=== PATIENT | female | born 1970 | race Caucasian/White ===

== ENCOUNTER 2018-12-03 21:04 | Inpatient (IN) | payer MEDICARE, OTHER ==
[2018-12-03] MEDS ORDERED: HYDROmorphone 0.5 MG/0.5 ML Syringe IVPUSH ONE (21:55)
[2018-12-03] MEDS ORDERED: Metoclopramide 10 MG/2 ML SDV IVPUSH ONE (21:55)
[2018-12-03] MEDS ORDERED: Lactated Ringers 1,000 ML IV SCH (22:00)
--- NOTE | 2018-12-03 22:01 | EDM.PDOC ---
ED HPI GENERAL MEDICAL PROBLEM - General Chief Complaint: Abdominal Pain Stated Complaint: PAIN SURGERY OCTOBER 12 Time Seen by Provider: 12/03/18 21:45 Source of Information: Reports: Patient, Old Records, RN History Limitations: Reports: No Limitations - History of Present Illness INITIAL COMMENTS - FREE TEXT/NARRATIVE: 48 yo female with a pHx of gastric bypass here with Dr. Sorensen presents with L sided abdominal pain that waxes and wanes, but has been getting worse for the past couple of mos. Had severe nausea last night without emesis. No fever. Pain is worsened by eating. About a mos. ago was seen in [place] and had a hemicolectomy for a caecal volvulus. She had some of today's L sided abdominal pain then, but it never went away and is getting gradually worse. Has not consulted Dr. Sorensen for this pain to date. Onset: Gradual Duration: Week(s):, Waxing/Waning Location: Reports: Abdomen Quality: Reports: Ache Severity: Moderate Improves with: Denies: Eating (not eating) Worsens with: Reports: Eating Context: Reports: Other (see HPI) Associated Symptoms: Reports: Nausea/Vomiting. Denies: Fever/Chills Treatments BOOM STICK MAN: Reports: Other (see below) (none) Left Abdomen Pain Score (Numeric/FACES): 8 - Related Data Allergies Allergy/AdvReac Type Severity Reaction Status Date / Time cephalexin monohydrate Allergy Rash Verified 12/03/18 21:40 [From Keflex] erythromycin base Allergy Rash Verified 12/03/18 21:40 latex Allergy Rash Verified 12/03/18 21:40 Penicillins Allergy Rash Verified 12/03/18 21:40 sulfamethoxazole Allergy Rash Verified 12/03/18 21:40 [From Septra] trimethoprim [From Marra] Allergy Rash Verified 12/03/18 21:40 Home Meds: Home Meds Albuterol [Proair HFA] 2 puff INH Q4HR PRN 01/15/15 [History] EPINEPHrine [Epipen 2-Marck] 0.3 mg IM DAILY PRN 01/15/15 [History] Cyanocobalamin (Vitamin B-12) [Vitamin B-12] 1,000 mcg SL DAILY #100 tab.subl [Rx] Pedi Multivit #22/Vit D3/Vit K [Multivitamins Chewables Tablet] 1 each PO BID # 100 tab.chew 01/17/15 [Rx] Levothyroxine [Synthroid] 100 mcg PO ACBREAKFAST 12/12/15 [History] Past Medical History HEENT History: Reports: Impaired Vision Other HEENT History: wears glasses Cardiovascular History: Reports: Other (See Below) Other Cardiovascular History: HYPOTENSION Respiratory History: Reports: Asthma, Sleep Apnea Other Respiratory History: Has CPAP Gastrointestinal History: Reports: Chronic Diarrhea, GERD Genitourinary History: Reports: Other (See Below) Other Genitourinary History: nerves damaged effecting bowel and bladder has a stimulator [employer] History: Reports: Musculoskeletal History: Reports: Back Pain, Chronic, Other (See Below) Other Musculoskeletal History: nerve pain Neurological History: Reports: None Psychiatric History: Reports: Anxiety Endocrine/Metabolic History: Reports: Hypothyroidism, Vitamin D Deficiency Hematologic History: Reports: B12 Deficiency, Blood Transfusion(s) Immunologic History: Reports: None Oncologic (Cancer) History: Reports: None Dermatologic History: Reports: Eczema - Infectious Disease History Infectious Disease History: Reports: Chicken Pox - Past Surgical History GI Surgical History: Reports: Appendectomy, Bariatric Procedure, Cholecystectomy , EGD, Esophageal Dilatation, Hernia Repair/Other Female Surgical History: Reports: Hysterectomy, Other (See Below) Neurological Surgical History: Reports: Discectomy, Laminectomy, Spinal Fusion Musculoskeletal Surgical History: Reports: Arthroscopic Knee, Other (See Below) Social & Family History - Family History HEENT: Reports: None Cardiac: Reports: None Respiratory: Reports: None GI: Reports: None : Reports: None OBGYN: Reports: None Musculoskeletal: Reports: Other (See Below) Other Musculoskeletal Family History: SCOLOSIS Neurological: Reports: None Psychiatric: Reports: None Endocrine/Metabolic: Reports: None Hematologic: Reports: None Immunologic: Reports: None Dermatologic: Reports: None Oncologic: Reports: None ED ROS GENERAL - Review of Systems Review Of Systems: See Below Constitutional: Reports: No Symptoms HEENT: Reports: No Symptoms Respiratory: Reports: No Symptoms Cardiovascular: Reports: No Symptoms Endocrine: Reports: No Symptoms GI/Abdominal: Reports: Abdominal Pain, Nausea. Denies: Anorexia, Black Stool, Bloody Stool, Constipation, Diarrhea, Distension, Flatus, Hematemesis, Hematochezia, Melena, Vomiting : Reports: No Symptoms Musculoskeletal: Reports: No Symptoms Skin: Reports: No Symptoms Neurological: Reports: No Symptoms ED EXAM, GI/ABD - Physical Exam Exam: See Below Exam Limited By: No Limitations General Appearance: Alert, WD/WN, No Apparent Distress Eyes: Bilateral: Normal Appearance Ears: Normal External Exam, Normal Canal, Hearing Grossly Normal, Normal TMs Nose: Normal Inspection, No Blood Throat/Mouth: Normal Inspection, Normal Lips, Normal Oropharynx, Normal Voice, No Airway Compromise Head: Atraumatic, Normocephalic Neck: Normal Inspection Respiratory/Chest: No Respiratory Distress, Lungs Clear, Normal Breath Sounds, No Accessory Muscle Use Cardiovascular: Regular Rate, Rhythm, No Edema GI/Abdominal Exam: Normal Bowel Sounds, Soft, No Distention, Tender (just to the left of the umbilicus). No: Non-Tender Neurological: Alert, Oriented, CN II-XII Intact, Normal Cognition, No Motor/ Sensory Deficits Psychiatric: Normal Affect, Normal Mood Skin Exam: Warm, Dry, Intact, Normal Color, No Rash Course - Vital Signs Text/Narrative:: Dr. Sorensen called @ 12:25 am Last Recorded V/S: Last Vital Signs Temp 36.5 C 12/03/18 21:43 Pulse 74 12/03/18 21:43 Resp 16 12/03/18 21:43 BP 133/84 12/03/18 21:43 Pulse Ox 98 12/03/18 21:43 - Orders/Labs/Meds Orders: Active Orders 24 hr Category Date Time Status Iopamidol [Isovue-300 (61%)] Med 12/03/18 23:24 Active 93 ml IV . DIRECTED PRN Lactated Ringers [Ringers, Lactated] 1,000 ml Med 12/03/18 22:00 Active IV ASDIRECTED Sodium Chloride 0.9% [Normal Saline] 70 ml Med 12/03/18 23:30 Active IV ASDIRECTED Sodium Chloride 0.9% [Saline Flush] Med 12/03/18 23:24 Active 10 ml FLUSH ONETIME PRN Medication Orders Lactated Ringer's (Ringers, Lactated) 1,000 mls @ 150 mls/hr IV ASDIRECTED MARIELOS Last Admin: 12/03/18 22:23 Dose: 150 mls/hr Sodium Chloride (Normal Saline) 70 mls @ 3 mls/sec IV ASDIRECTED MARIELOS Last Admin: 05/31/19 23:41 Dose: 3 mls/sec Iopamidol (Isovue-300 (61%)) 93 ml IV . DIRECTED PRN PRN Reason: RADIOLOGY EXAM Stop: 12/04/18 23:25 Last Admin: 12/03/18 23:41 Dose: 93 ml Sodium Chloride (Saline Flush) 10 ml FLUSH ONETIME PRN PRN Reason: per radiology protocol Last Admin: 12/03/18 23:41 Dose: 10 ml Labs: Laboratory Tests 12/03/18 12/03/18 12/03/18 Range/Units 22:06 22:06 23:37 WBC 5.3 (4.5-11.0) K/uL RBC 3.98 (3.30-5.50) M/uL Hgb 11.8 L (12.0-15.0) g/dL Hct 38.4 (36.0-48.0) % MCV 97 (80-98) fL MCH 30 (27-31) pg MCHC 31 L (32-36) % Plt Count 266 (150-400) K/uL Sodium 143 (140-148) mmol/L Potassium 3.5 L (3.6-5.2) mmol/L Chloride 106 (100-108) mmol/L Carbon Dioxide 29 (21-32) mmol/L Anion Gap 11.5 (5.0-14.0) mmol/L BUN 16 (7-18) mg/dL Creatinine 0.6 (0.6-1.0) mg/dL Est Cr Clr Drug Dosing 109.08 mL/min Estimated GFR (MDRD) > 60 (>60) Glucose 89 (74-106) mg/dL Calcium 9.1 (8.5-10.1) mg/dL Urine Color Yellow Urine Appearance Cloudy Urine pH 6.0 (4.5-8.0) Ur Specific Kinde 1.005 L (1.008-1.030) Urine Protein Trace (NEGATIVE) mg/dL Urine Glucose (UA) 250 H (NEGATIVE) mg/dL Urine Ketones 15 H (NEGATIVE) mg/dL Urine Occult Blood Negative (NEGATIVE) Urine Nitrite Negative (NEGATIVE) Urine Bilirubin Large (NEGATIVE) Urine Urobilinogen >=8.0 (NORMAL) mg/dL Ur Leukocyte Esterase Moderate (NEGATIVE) Urine RBC 0-5 (0-5) Urine WBC 10-20 H (0-5) Ur Epithelial Cells Few Amorphous Sediment Moderate Urine Bacteria Few Urine Mucus Moderate Meds: Medications Generic Name Dose Route Start Last Admin Trade Name Freq PRN Reason Stop Dose Admin Lactated Ringer's 1,000 mls @ 150 mls/hr 12/03/18 22:00 12/03/18 22:23 Ringers, Lactated IV 150 mls/hr ASDIRECTED MARIELOS Administration Sodium Chloride 70 mls @ 3 mls/sec 12/03/18 23:30 12/03/18 23:41 Normal Saline IV 3 mls/sec ASDIRECTED MARIELOS Administration Iopamidol 93 ml 12/03/18 23:24 12/03/18 23:41 Isovue-300 (61%) IV 12/04/18 23:25 93 ml . DIRECTED PRN Administration RADIOLOGY EXAM Sodium Chloride 10 ml 12/03/18 23:24 12/03/18 23:41 Saline Flush FLUSH 10 ml ONETIME PRN Administration per radiology protocol Discontinued Medications Generic Name Dose Route Start Last Admin Trade Name Freq PRN Reason Stop Dose Admin Hydromorphone HCl 0.5 mg 12/03/18 21:55 12/03/18 22:23 Dilaudid IVPUSH 12/03/18 21:56 0.5 mg ONETIME ONE Administration Iohexol 10 ml 12/03/18 22:15 Omnipaque-300 PO . DIRECTED [facility] Iohexol Confirm 12/03/18 22:29 Omnipaque Administered 12/03/18 22:30 Dose 30 ml .ROUTE .STK-MED ONE Iohexol 30 ml 12/03/18 22:37 12/03/18 22:39 Omnipaque PO 12/03/18 22:38 20 ml ONETIME ONE Administration Metoclopramide HCl 10 mg 12/03/18 21:55 12/03/18 22:25 Reglan IVPUSH 12/03/18 21:56 10 mg ONETIME ONE Administration - Radiology Interpretation Free Text/Narrative:: CT of abdomen and pelvis with IV and oral contrast-? non-obstructive internal hernia CT Results Date: 12/03/18 CT Results Time: 00:20 Departure - Departure Time of Disposition: 00:29 Disposition: Admitted As Inpatient 64 Condition: Fair Clinical Impression: Internal hernia Abdominal pain Qualifiers: Abdominal location: unspecified location Qualified Code(s): R10.9 - Unspecified abdominal pain - Discharge Information *PRESCRIPTION DRUG MONITORING PROGRAM REVIEWED*: No *COPY OF PRESCRIPTION DRUG MONITORING REPORT IN PATIENT [place]: No Referrals: Edward Sorensen MD [Primary Care Provider] - Forms: ED Department Discharge - My Orders Last 24 Hours: My Active Orders 12/03/18 22:00 Lactated Ringers [Ringers, Lactated] 1,000 ml IV ASDIRECTED 12/03/18 23:24 Iopamidol [Isovue-300 (61%)] 93 ml IV . DIRECTED PRN Sodium Chloride 0.9% [Saline Flush] 10 ml FLUSH ONETIME PRN 12/03/18 23:30 Sodium Chloride 0.9% [Normal Saline] 70 ml IV ASDIRECTED - Assessment/Plan Last 24 Hours: My Active Orders 12/03/18 22:00 Lactated Ringers [Ringers, Lactated] 1,000 ml IV ASDIRECTED 12/03/18 23:24 Iopamidol [Isovue-300 (61%)] 93 ml IV . DIRECTED PRN Sodium Chloride 0.9% [Saline Flush] 10 ml FLUSH ONETIME PRN 12/03/18 23:30 Sodium Chloride 0.9% [Normal Saline] 70 ml IV ASDIRECTED
[2018-12-03] MEDS ORDERED: Iohexol 647 MG/ML 10 ML SDV PO SCH (22:15)
[2018-12-03] MEDS ORDERED: Iohexol 300 MG/ML 30 ML Bottle ONE (22:29)
[2018-12-03] MEDS ORDERED: Iohexol 300 MG/ML 30 ML Bottle PO ONE (22:37)
[2018-12-03] MEDS ORDERED: Iopamidol 612 MG/ML 100 ML Bottle IV PRN (23:24)
[2018-12-03] MEDS ORDERED: Sodium Chloride 0.9% 10 ML Syringe FLUSH PRN (23:24)
--- NOTE | 2018-12-04 00:19 | CRLCT ---
INDICATION: Increasing abdominal pain over weeks TECHNIQUE: CT Abdomen and pelvis with i.v. contrast. Coronal and sagittal reformats were obtained. Oral contrast was administered for the examination. CONTRAST: 93 mL Isovue 300 COMPARISON: 02/08/2016 FINDINGS: Lower chest: Unremarkable. Liver: Unremarkable. Spleen: Unremarkable. Pancreas: Unremarkable. Gallbladder: Previous cholecystectomy noted with mild stable intra and extrahepatic biliary ductal dilatation seen. Kidney: There is a cyst in the left renal midzone measuring 6 x 4 cm. Adrenal: Unremarkable. Bowel: Previous antegastric-antecolic gastric bypass noted with no definite obstruction of the biliopancreatic limb or Chiquis-en-Y loop seen. The descending colon has been displaced into the midline by small bowel loops in the left flank when compared to prior exam. The appendix is not visualized and likely surgically absent. Vascular: Unremarkable. Lymph: Unremarkable. Peritoneum: Unremarkable. No pneumoperitoneum is seen. No significant ascites is noted. Pelvis: Unremarkable. Soft tissue: The left gluteal neurostimulator is present. Bone: Grade 1 anterolisthesis at L5-S1 is present and status post transpedicular fusion. IMPRESSION: 1. The descending colon has been displaced into the midline by small bowel loops in the left flank when compared to prior exam. Findings most likely due to nonobstructive internal hernia. Dictated by Edilberto Barrios MD @ 12/04/2018 12:16:27 AM Please note that all CT scans at this facility use dose modulation, iterative reconstruction, and/or weight-based dosing when appropriate to reduce radiation dose to as low as reasonably achievable. Dictated by: Edilberto Barrios MD @ 12/04/2018 00:16:42 (Electronically Signed)
[2018-12-04] MEDS ORDERED: Ondansetron 4 MG/2 ML SDV IVPUSH PRN (01:03)
[2018-12-04] MEDS ORDERED: HYDROmorphone/Normal Saline 15 MG/30 ML PCA IV SCH (01:15)
[2018-12-04] MEDS ORDERED: Dextrose 5%-Lactated Ringers 1,000 ML IV SCH (01:15)
[2018-12-04] MEDS ORDERED: HYDROmorphone/Normal Saline 15 MG/30 ML PCA IV PRN (07:04)
[2018-12-04] MEDS ORDERED: Naloxone 0.4 MG/ML SDV IV PRN (07:05)
[2018-12-04] MEDS ORDERED: Albuterol/Ipratropium 3.0-0.5 MG/3 ML Neb Soln INH ONE (08:00)
[2018-12-04] MEDS ORDERED: Succinylcholine 200 MG/10 ML MDV ONE (08:26)
[2018-12-04] MEDS ORDERED: Rocuronium 50 MG/5 ML Vial ONE ×2 (08:26→10:32)
[2018-12-04] MEDS ORDERED: Propofol 200 MG/20 ML SDV ONE (08:26)
[2018-12-04] MEDS ORDERED: Glycopyrrolate 0.2 MG/ML 5 ML MDV ONE (08:26)
[2018-12-04] MEDS ORDERED: Neostigmine Methylsulfate 1 MG/ML 5 ML Syringe ONE (08:26)
[2018-12-04] MEDS ORDERED: fentaNYL 250 MCG/5 ML SDV ONE (08:26)
[2018-12-04] MEDS ORDERED: Ondansetron 4 MG/2 ML SDV ONE (08:26)
[2018-12-04] MEDS ORDERED: Dexamethasone 4 MG/ML SDV ONE (08:26)
[2018-12-04] MEDS ORDERED: Ketamine 50 MG in Sodium Chloride 0.9% 49.5 ML IV SCH (08:30)
[2018-12-04] MEDS ORDERED: Lidocaine 2% 100 MG/5 ML Syringe IVPUSH SCH (08:30)
[2018-12-04] MEDS ORDERED: Ketamine 500 MG/5 ML MDV IV SCH (08:30)
[2018-12-04] MEDS ORDERED: Ropivacaine 30 ML, dexAMETHasone 8 MG, EPINEPHrine 0.4 MG, Sodium Chloride 0.9% 47.6 ML NERVRT SCH ×4 (08:30)
[2018-12-04] MEDS ORDERED: Levofloxacin/Dextrose 5%-Water 500 MG in Premix Bag 1 BAG IV ONE (08:30)
[2018-12-04] MEDS ORDERED: Meropenem 500 MG SDV ONE (08:40)
[2018-12-04] MEDS: Lidocaine 0.4%/D5W 2 GM/500 ML BAG IV SCH (09:30)
[2018-12-04] MEDS ORDERED: Bupivacaine 0.5% 50 ML MDV ONE (09:47)
[2018-12-04] MEDS ORDERED: Lidocaine 1% with EPINEPHrine 1:100,000 50 ML MDV ONE (09:47)
[2018-12-04] MEDS ORDERED: Lactated Ringers 1,000 ML ONE (10:09)
[2018-12-04] MEDS ORDERED: hydrOXYzine HCl 100 MG/2 ML SDV IM PRN (11:45)
[2018-12-04] MEDS ORDERED: Metoclopramide 10 MG/2 ML SDV IVPUSH PRN (11:45)
[2018-12-04] MEDS ORDERED: Albuterol/Ipratropium 3.0-0.5 MG/3 ML Neb Soln INH PRN (11:45)
[2018-12-04] MEDS ORDERED: Labetalol 20 MG/4 ML Syringe IVPUSH PRN (11:45)
[2018-12-04] MEDS: Meropenem 500 MG in Sodium Chloride 0.9% 50 ML IV SCH ×2 (11:52→18:52)
[2018-12-04] MEDS ORDERED: Scopolamine 1.5 MG Transdermal Patch TOP SCH (14:00)
[2018-12-04] MEDS ORDERED: Pantoprazole 40 MG Vial IVPUSH SCH (14:00)
[2018-12-04] MEDS: Acetaminophen 325 MG Tab PO SCH ×2 (14:38→20:22)
[2018-12-04] MEDS: Albuterol/Ipratropium 3.0-0.5 MG/3 ML Neb Soln INH SCH ×2 (14:52→20:23)
[2018-12-04] MEDS ORDERED: MVI, Adult with Vitamin K 10 ML, Thiamine 200 MG, Chromium/Copper/Mang/Selen/Zn 1 ML in... IV SCH ×4 (16:00)
[2018-12-04] MEDS: Heparin Sodium 5,000 Units/ML Vial SUBCUT SCH (18:31)
[2018-12-04] MEDS: Dextrose 5%-Lactated Ringers 1,000 ML IV SCH (22:05)
[2018-12-04] MEDS: diphenhydrAMINE 50 MG/ML SDV IVPUSH PRN (22:22)
[2018-12-05] MEDS: Meropenem 500 MG in Sodium Chloride 0.9% 50 ML IV SCH ×3 (00:38→12:16)
[2018-12-05] MEDS: Acetaminophen 325 MG Tab PO SCH ×2 (02:25→07:28)
[2018-12-05] MEDS ORDERED: Iohexol 647 MG/ML 50 ML SDV PO PRN (02:54)
[2018-12-05] MEDS: Dextrose 5%-Lactated Ringers 1,000 ML IV SCH (04:00)
--- NOTE | 2018-12-05 04:20 | CRLCR ---
INDICATION: Evaluate Chiquis-en-Y gastric bypass. TECHNIQUE: 50 cc of Omnipaque was given orally. Two abdominal films were obtained. COMPARISON: CT of the abdomen 12/03/2018 and 02/08/2016. FINDINGS: There are postoperative changes from a Chiquis-en-Y bypass. There surgical clips in the right upper quadrant. Skin osmani. Prior fusion in the lower lumbar spine. Fusion of the right sacroiliac joint. Moderate pneumoperitoneum probably secondary to recent surgery. Contrast is seen in the small bowel without extravasation or leakage. Probable neurostimulator over the left iliac crest. IMPRESSION: 1. No evidence of contrast extravasation on the 2 static submitted images. 2. Moderate pneumoperitoneum probably related to recent surgery. Dictated by Elvin Hanson MD @ Dec 06 2018 8:14AM Signed by Dr. Elvin Hanson @ Dec 06 2018 8:19AM
[2018-12-05] MEDS: Heparin Sodium 5,000 Units/ML Vial SUBCUT SCH ×2 (05:53→18:16)
[2018-12-05] MEDS: diphenhydrAMINE 50 MG/ML SDV IVPUSH PRN (07:20)
[2018-12-05] MEDS: Albuterol/Ipratropium 3.0-0.5 MG/3 ML Neb Soln INH SCH ×4 (07:36→21:00)
[2018-12-05] MEDS: Lidocaine 0.4%/D5W 2 GM/500 ML BAG IV SCH (08:23)
[2018-12-05] MEDS: SCOPOLAMINE PATCH CHECK TOP SCH (08:24)
[2018-12-05] MEDS: MVI IV SCH ×10 (10:02→19:29)
[2018-12-05] MEDS: [UNRECOGNIZED DRUG - OTHER] IV SCH ×10 (10:02→19:29)
[2018-12-05] MEDS: DEXTROSE 5% IV SCH ×10 (10:02→19:29)
[2018-12-05] MEDS: VITAMIN K IV SCH ×10 (10:02→19:29)
[2018-12-05] MEDS: LACTATED RINGERS IV SCH ×10 (10:02→19:29)
[2018-12-05] MEDS: Magnesium Sulfate/Water 2 GM in Premix Bag 1 BAG IV SCH ×2 (10:06→18:22)
[2018-12-05] MEDS: Pantoprazole 40 MG Tab.CR PO SCH (11:34)
[2018-12-05] MEDS: Levothyroxine 100 MCG Tab PO SCH (13:32)
[2018-12-05] MEDS: Ibuprofen 600 MG Tab PO SCH ×2 (13:32→19:29)
[2018-12-05] MEDS: Acetaminophen/HYDROcodone 325-5 MG Tab PO PRN ×2 (14:26→20:59)
[2018-12-05] MEDS ORDERED: Magnesium Hydroxide 400 MG/5 ML Susp 30 ML Cup PO ONE (16:18)
[2018-12-05] MEDS ORDERED: Bisacodyl 5 MG Tab PO ONE (16:18)
[2018-12-06] MEDS: Ibuprofen 600 MG Tab PO SCH ×2 (01:39→07:23)
[2018-12-06] MEDS: Acetaminophen/HYDROcodone 325-5 MG Tab PO PRN ×3 (01:39→09:45)
[2018-12-06] MEDS: Heparin Sodium 5,000 Units/ML Vial SUBCUT SCH (05:41)
[2018-12-06] MEDS: [UNRECOGNIZED DRUG - OTHER] IV SCH ×5 (05:44)
[2018-12-06] MEDS: MVI IV SCH ×5 (05:44)
[2018-12-06] MEDS: DEXTROSE 5% IV SCH ×5 (05:44)
[2018-12-06] MEDS: VITAMIN K IV SCH ×5 (05:44)
[2018-12-06] MEDS: LACTATED RINGERS IV SCH ×5 (05:44)
[2018-12-06] MEDS ORDERED: diphenhydrAMINE 25 MG Cap PO PRN (06:24)
[2018-12-06] MEDS: Pantoprazole 40 MG Tab.CR PO SCH (07:23)
[2018-12-06] MEDS: Levothyroxine 100 MCG Tab PO SCH (07:23)
[2018-12-06] MEDS: Albuterol/Ipratropium 3.0-0.5 MG/3 ML Neb Soln INH SCH (07:25)
[2018-12-06 07:57] VITALS: BP 97/76
[2018-12-06] MEDS ORDERED: Cyanocobalamin (Vitamin B12) 1,000 MCG/ML SDV IM ONE (09:00)
[2018-12-06] MEDS: SCOPOLAMINE PATCH CHECK TOP SCH (09:39)
--- NOTE | 2018-12-06 13:13 | DISCH ---
ADMISSION DIAGNOSES: 1. Postprandial abdominal pain. 2. Hypothyroidism. 3. Chronic neck pain. 4. Sacroiliac joint dysfunction. 5. Fibromyalgia. 6. Renal cyst. 7. Status post Chiquis-en-Y gastric bypass surgery. 8. Vitamin B complex. 9. Vitamin B12 deficiency. 10.Unspecified surgical malabsorption. 11.Vitamin D deficiency. 12.Elevated liver function tests. 13.Mild persistent asthma without complication. DISCHARGE DIAGNOSES: Exploratory laparotomy with lysis of extensive adhesions: 1. Reduction of small bowel volvulus and closure of internal hernia. 2. Small-bowel resection. 3. Resection of right colon including previous ileocolonic anastomosis. 4. Small bowel strictureplasty. 5. Repair of incarcerated incisional hernia. 6. Placement of Interceed mesh for small bowel volvulus with torsion of the jejunojejunostomy by the PD limb of the small bowel, partial obstruction, previous ileocolonic anastomosis, focal stricture closure secondary to adhesion, elongated peritoneal nodule over distended small bowel and adjacent to mesenteric (7.5 cm) and incarcerated incisional hernia. Date of surgery: 12/04/2018. Surgeon: Edward Sorensen MD. HISTORY: Seema Long is a 48-year-old female who had postprandial abdominal pain, she presented to the emergency room. After preoperative evaluation and discussion of possible risks and possible complications, she wished to proceed with surgical procedure. HOSPITAL COURSE: Seema had her surgery on 12/04/2018. She had no operative complications. On postoperative day #1, she was started on step 3 gastric bypass diet. Her Wetzel catheter was discontinues. Her IV was decreased to 100 mL per hour. She received K-Phos 15 millimoles to each liter of D5 LR and her magnesium was replaced 2 g q.6 hours. On postoperative day #2, her pain was controlled. Vital signs stable. Activity good. She was able to be discharged to home. Oral intake 2100 and urine output 2100. OBJECTIVE: GENERAL: Seema Long is a 48-year-old female. VITAL SIGNS: Height is 5 feet 7 inches, weight is 140 pounds. TPR is 97.6, 90, 16, blood pressure 124/73. HEENT: Negative. NECK: Supple. HEART: Regular rate and rhythm. LUNGS: Clear. ABDOMEN: Stapled incision looks good. There are 2 to 3 osmani that are raised and in the actual incision itself. These will be Steri-Stripped and left in place. Abdominal binder is on. EXTREMITIES: Without peripheral edema. DISPOSITION: Discharged to home. CONDITION: Stable and improving. FOLLOWUP: Followup appointment on 12/13/2018 at 1 p.m. with Naa Clark PA-C, at [facility]. NEW PRESCRIPTIONS: Mcdowell 5/325 mg 1 to 2 q.6 hours p.r.n. pain, #56. She is to resume home medication of vitamin B12 1000 mcg sublingual daily, EpiPen use as directed, levothyroxine 100 mcg oral before breakfast, multivitamin b.i.d. chewable. DIET: Step 3 gastric bypass diet. Drink 8 to 10 glasses of water a day. ACTIVITY: No lifting over 10 pounds for 6 weeks. Walk at least 6 times inside your house. Driving: Do not drive for 1 week and while on pain medication. Shower/bathing: May shower. DISCHARGE INSTRUCTIONS: Notify provider if any fever, increased pain, swelling, redness, drainage, nausea, vomiting. Keep site clean and dry. Wear abdominal binder for 6 weeks and as needed. Use incentive spirometer 10 times every hour while awake.
--- NOTE | 2018-12-07 10:49 | PN ---
DATE OF SERVICE: 12/05/2018 The patient is postop day 1 from reduction of volvulus, small bowel resection, as well as resection of previous ileocolic anastomosis, which was partially obstructed. Postoperatively, she has done well. No significant problems were noted overnight. Her upper GI looked good, and she is tolerating a clear liquid diet satisfactorily. The plan will be to back down on the IV rate. The magnesium is somewhat low, and we will supplement that over the next 48 hours. The potassium is marginally low at 3.9, and we will add 15 mmol of K-Phos to her D5 LR and otherwise turn the IV down to 100 an hour. The Wetzel catheter will come out and will go up to step-3 diet. She is having a fair bit of surgical discomfort and will leave the IV [employer] going for today. Edward Sorensen MD /[id number]
--- NOTE | 2018-12-07 12:22 | OR ---
DATE OF PROCEDURE: 12/04/2018 PREOPERATIVE DIAGNOSIS: Probable partial small bowel obstruction. POSTOPERATIVE DIAGNOSES: 1. Small bowel volvulus. 2. Torsion of jejunojejunostomy by a retracted mesentery attached to pancreaticoduodenal limb stump. 3. Partial obstruction of previous ileocolic anastomosis. 4. Focal stricture at mid-ileum secondary to adhesions. 5. Elongated peritoneal nodule overlying small bowel and adjacent small bowel mesentery. 6. Incarcerated incisional (trocar site) hernia. 7. Extensive intraabdominal adhesions. OPERATIVE PROCEDURES: Exploratory laparotomy with lysis of extensive adhesions and, 1. Reduction of small bowel volvulus and closure of internal hernia (46692). 2. Small bowel resection (23635). 3. Resection of ascending and portion of transverse colon including previous ileocolic anastomosis (34980). 4. Small bowel stricturoplasty (01017). 5. Resection of elongated peritoneal nodule, distal small bowel and adjacent small bowel mesentery (7.5 cm) (25482). 6. Placement of Interceed mesh to limit recurrent adhesion formation between pelvic and abdominal caraballo and underlying viscera (92403). ANESTHESIA: General. INDICATION FOR PROCEDURE: This is a 48-year-old presenting with a picture of persistent small bowel obstruction. In early October, the patient underwent a right colectomy for a cecal volvulus. Prior to that, the patient, for several months, had postprandial left-sided abdominal bloating and cramping between the postprandial period. Based on the clinical findings, this was highly suggestive of partial small bowel obstruction. The plan is to proceed with an exploratory laparotomy with correction of issues that might arise including reduction and then closure of volvulus and associated mesenteric defects if identified, as well as possible bowel resection. Potential risks of the procedure including bleeding, infection, injury to underlying viscera, leaks from various GI tract closures, as well as the possibility of cardiopulmonary, septic, or hemorrhagic complications leading to were discussed, and the patient wishes to proceed. DETAILS OF PROCEDURE: The patient was taken to the operating room and placed in a supine position. After general endotracheal anesthesia was induced, a Wetzel catheter was inserted, and the abdomen was prepped and draped. Beginning roughly a handsbreadth's superior to the umbilicus and eventually extending somewhat below the umbilicus, the midline incision was made and carried down through the full thickness of the abdominal wall. Upon entering the peritoneal cavity, there were quite extensive adhesions and these were taken down. Once the adhesions to the abdominal wall were reviewed, the Chiquis limb was identified. This was traced downward where it became evident that there was development of a small bowel volvulus with rotation of the area of the jejunojejunostomy, a portion of the Chiquis, common as well as pancreatoduodenal limbs underlying the mesentery of the Chiquis limb itself as it came over the transverse colon. This was reduced and upon its reduction, the patient was noted to have continued distortion of the jejunojejunostomy related to torsion of the mesentery on the pancreatoduodenal limb. The small bowel was then resected with a EMETERIO stapler, and the underlying mesentery divided with the EMETERIO mesenteric loads, and the small bowel specimen delivered from the field. The underlying mesenteric defect at that point was then closed with a running 2-0 silk stitch. There was also small mesenteric defect underlying the jejunojejunostomy, which was similarly closed with a 2-0 silk stitch. As one then traced out the common limb, as one approached the area of the ileocolic anastomosis, the bowel became quite distended. There was a focal stricture in the mid-ileum which persisted after lysis of some adhesions in that area. Beyond that, the small bowel remained quite distended and became progressively more distended along the course of the ileocolic anastomosis. It became evident that, that was partially obstructed. Some peritoneal implants over the distal small bowel were excised with a total measurement of this process being 7.5 cm, and these were sent as a separate pathologic examination. Despite freeing up those peritoneal nodules over the distal small bowel, there appeared to be persistent partial obstruction of the ileocolic anastomosis. A decision was made to resect that area as well as deal with the more proximal stricture. At this point, the remaining ascending colon, hepatic flexure were mobilized upward after division of the lateral peritoneal reflection and the transverse colon to the right of the middle colic vessels was divided with a EMETERIO stapler, and the distal small bowel at the previous anastomosis was then also divided. The mesentery between the 2 points was divided with a combination of vascular and mesenteric osmani and that specimen was delivered from the field. The ileocolic anastomosis was then accomplished with a [id number] enteroenterostomy with 2 internal firings of the 60-mm EMETERIO osmani. Common opening was then closed transversely with the EMETERIO osmani as well, and angles anastomosed and mesenteric defect approximated with some 3-0 Vicryl stitch. The area of stricturing was then addressed with making an enterotomy at the point of stricture, then flipping the bowel back over on itself. Then, the stricturoplasty was accomplished with initial internal firing of the 60-mm stapler, followed by 30 mm EMETERIO stapler, and then the common opening closed transversely with the EMETERIO stapler as well. There was no mesenteric defect in this case, and the angles of anastomosis were reinforced with some 3-0 Vicryl stitch. At this point, no further problems were noted. The abdomen was irrigated with antibiotic-containing saline solution. A drain was felt not to be necessary. Interceed mesh was then placed down to the pelvis, in the midline behind urinary bladder and up against the abdominal incision, to prevent recurrent adhesion formation between the underlying viscera and those structures as the omentum was not available for mobilization. The midline fascia was then approximated with #2 Vicryl stitch. At the time of opening, the patient was noted to have an incarcerated trocar-site hernia, of which, those contents had been excised, and this hernia was closed as part of the closure of midline fascia. The subcutaneous tissue was then approximated with some 3-0 Vicryl stitch deep and a 4-0 Vicryl subdermal stitch and osmani for the skin. Dressing was applied. The patient was taken to the recovery room in a satisfactory condition. There were no evident complications. Edward Sorensen MD /[id number]
== END 2018-12-06 10:00 | disposition home or self-care (01) | DRG 330 ==
LOC: JP.ED 21:04 → JP.MS 12-04 00:55
PROVIDERS: ADMIT Surgery; ATTEND Surgery
PROC: 0DS80ZZ Reposition Small Intestine, Open Approach (ICD-10-PCS; principal; 2018-12-04)
PROC: 0DNW0ZZ Release Peritoneum, Open Approach (ICD-10-PCS; 2018-12-04)
PROC: 0DBA0ZZ Excision of Jejunum, Open Approach (ICD-10-PCS; 2018-12-04)
PROC: 0WQF0ZZ Repair Abdominal Wall, Open Approach (ICD-10-PCS; 2018-12-04)
PROC: 0DBW0ZX Excision of Peritoneum, Open Approach, Diagnostic (ICD-10-PCS; 2018-12-04)
PROC: 0DBK0ZZ Excision of Ascending Colon, Open Approach (ICD-10-PCS; 2018-12-04)
PROC: 0DBL0ZZ Excision of Transverse Colon, Open Approach (ICD-10-PCS; 2018-12-04)
PROC: 0DN84ZZ Release Small Intestine, Percutaneous Endoscopic Approach (ICD-10-PCS; 2018-12-04)
PROC: 3E0M05Z Introduction of Adhesion Barrier into Peritoneal Cavity, Open Approach (ICD-10-PCS; 2018-12-04)
DX: K56.2 Volvulus (principal); K43.0 Incisional hernia with obstruction, without gangrene; K91.2 Postsurgical malabsorption, not elsewhere classified; K46.9 Unspecified abdominal hernia without obstruction or gangrene; K56.51 Intestinal adhesions [bands], with partial obstruction; K66.8 Other specified disorders of peritoneum; M79.7 Fibromyalgia; Z98.84 Bariatric surgery status; Z98.0 Intestinal bypass and anastomosis status; R10.9 Unspecified abdominal pain; K21.9 Gastro-esophageal reflux disease without esophagitis; J45.20 Mild intermittent asthma, uncomplicated; Z90.49 Acquired absence of other specified parts of digestive tract; E03.9 Hypothyroidism, unspecified; H54.7 Unspecified visual loss; G47.30 Sleep apnea, unspecified; Z99.89 Dependence on other enabling machines and devices; M54.9 Dorsalgia, unspecified; G89.29 Other chronic pain; E53.8 Deficiency of other specified B group vitamins; E55.9 Vitamin D deficiency, unspecified; R79.89 Other specified abnormal findings of blood chemistry; N28.1 Cyst of kidney, acquired; M54.2 Cervicalgia; Z88.1 Allergy status to other antibiotic agents; Z91.040 Latex allergy status; Z88.0 Allergy status to penicillin; Z88.8 Allergy status to other drugs, medicaments and biological substances
CPT/HCPCS: 36415; 74177; 80048; 81001; 85027; 96361 ×2; 96374; 96375; 99285; J1170; J2765; J7030; J7120; Q9965; Q9967; 74240; 80053; 82728; 83735; 84100; 85025; 88302; 88305; 88307; 94640; 94762; A9270-GY; C9113; J0171; J0330; J1100; J1200; J1644; J1956; J2001; J2020; J2185; J2405; J2704; J2710; J2795; J3010; J3410; J3411; J3420; J3475; J3490; J7042; J7050; J7620-GY

== ENCOUNTER 2019-04-08 10:00 | Day surgery (SDC) | payer BC, MEDICARE, OTHER ==
[~2019-04-08 10:00] MED LIST: Midazolam 1 MG/ML 2 ML SDV ONE; Propofol 200 MG/20 ML SDV ONE; fentaNYL 100 MCG/2 ML SDV ONE
[2019-04-08] MEDS ORDERED: Dextrose 5%-Lactated Ringers 1,000 ML IV SCH (10:45)
[2019-04-08] MEDS ORDERED: Propofol 200 MG/20 ML SDV ONE (13:03)
[2019-04-08 14:11] VITALS: BP 117/89; PULSE 63
--- NOTE | 2019-04-10 23:14 | OR ---
DATE OF PROCEDURE: 04/08/2019 SURGEON: Edward Sorensen MD PREOPERATIVE DIAGNOSIS: Frequent loose bowel movements/diarrhea, status post right colectomy. POSTOPERATIVE DIAGNOSES: 1. Frequent loose bowel movements/diarrhea, status post right colectomy. 2. Grossly normal colonoscopy other than small, very vague, slightly reddened area in the sigmoid colon. OPERATIVE PROCEDURES: Flexible colonoscopy with; 1. Collection of stool for microbiologic workup (WBCs, C. difficile, general culture, ova and parasites). 2. Random biopsies of the colon and rectum to rule out microscopic colitis. 3. Biopsies of focal slightly reddened area, sigmoid colon. ANESTHESIA: IV sedation. INDICATION FOR PROCEDURE: A 48-year-old female status post a right colectomy earlier this year, also status post previous Chiquis-en-Y gastric bypass. She since that surgery has had problems with frequent loose bowel movements/diarrhea and has underwent CT scan which did show some potential thickening of the sigmoid colon. Plan is to proceed with flexible colonoscopy with collection of the remaining stool for microbiologic workup along with biopsies as indicated. Potential risks including bleeding and perforation were discussed, and the patient wishes to proceed. DETAILS OF PROCEDURE: The patient was taken to the operating room, placed in a left lateral decubitus position, IV sedation was administered after which the initial digital rectal exam was performed which was unremarkable. Colonoscope was then passed from the rectum with retroflexion revealing uncomplicated hemorrhoidal columns. The scope was then passed from the rectum into the ileocolic anastomosis which was in the proximal transverse colon. To that level, no specific abnormalities were noted other than there being a very slightly reddened area in the area of the sigmoid colon though latter may simply be normal variant or as a result of the scope being passed through that area. Other than that, there was no diverticula. No obvious areas of gross colitis or neoplastic changes. The prep was generally good with only a small amount of liquid stool present with the vast majority of the mucosal surfaces being well visualized. As the procedure was initiated, some of the liquid stool was evacuated and sent for microbiologic workup with the above-noted findings being recognized, then random colorectal biopsies were obtained from the area of the proximal transverse colon adjacent to the ileocolic anastomosis down through the rectum. These were sent as 1 specimen, and then from the slightly reddened area of sigmoid colon, initial set of biopsies was obtained and sent separately for histologic evaluation. No bleeding biopsy site was seen and the procedure was then concluded. The patient will be following up with Naa Clark on 04/15/2019. If the microbiologic and histologic evaluation is entirely negative, then the patient should be started on something to slow the bowel such as Imodium and/or Lomotil plus adding increased fiber to the diet. If over time that becomes unsuccessful, adding bile acid binding agent such as Questran may be beneficial. If microbiological findings are abnormal, specific treatment for that result should be obtained, otherwise if there is microscopic colitis identified, a Gastroenterology referral would be warranted. Edward Sorensen MD /[id number]
== END 2019-04-08 14:19 | disposition home or self-care (01) ==
LOC: JP.SDS 10:00
PROVIDERS: ATTEND Surgery
DX: R19.7 Diarrhea, unspecified (principal); K63.89 Other specified diseases of intestine; K64.9 Unspecified hemorrhoids; E03.9 Hypothyroidism, unspecified; F17.200 Nicotine dependence, unspecified, uncomplicated; F32.9 Major depressive disorder, single episode, unspecified; Z90.49 Acquired absence of other specified parts of digestive tract; Z98.84 Bariatric surgery status
CPT/HCPCS: 45380; 87046; 87177; 87209; 87493; 87899; 88305; 89055; J2250; J2704; J3010; J7042

== ENCOUNTER 2023-02-17 05:28 | Inpatient (IN) | payer BC, OTHER ==
[2023-02-17] MEDS ORDERED: Scopolamine 1.5 MG Transdermal Patch TOP SCH (06:00)
[2023-02-17] MEDS ORDERED: Bupivacaine 0.5% 50 ML MDV ONE (06:44)
[2023-02-17] MEDS ORDERED: Meropenem 500 MG SDV ONE (06:44)
[2023-02-17] MEDS ORDERED: Lidocaine 1% with EPINEPHrine 1:100,000 50 ML MDV ONE (06:44)
[2023-02-17] MEDS ORDERED: Dextrose 5%-Lactated Ringers 1,000 ML IV SCH (07:00)
[2023-02-17] MEDS ORDERED: Meropenem 500 MG in Sodium Chloride 0.9% 50 ML IV ONE (07:00)
[2023-02-17] MEDS ORDERED: Neostigmine Methylsulfate 1 MG/ML 5 ML Syringe ONE (07:08)
[2023-02-17] MEDS ORDERED: Rocuronium 50 MG/5 ML Vial ONE (07:08)
[2023-02-17] MEDS ORDERED: Propofol 200 MG/20 ML SDV ONE (07:08)
[2023-02-17] MEDS ORDERED: fentaNYL 250 MCG/5 ML SDV ONE (07:08)
[2023-02-17] MEDS ORDERED: Succinylcholine 200 MG/10 ML MDV ONE (07:08)
[2023-02-17] MEDS ORDERED: Glycopyrrolate 0.2 MG/ML 5 ML MDV ONE (07:08)
[2023-02-17] MEDS ORDERED: Ondansetron 4 MG/2 ML SDV ONE (07:08)
[2023-02-17] MEDS ORDERED: Dexamethasone 4 MG/ML SDV ONE (07:08)
[2023-02-17] MEDS ORDERED: diphenhydrAMINE 50 MG/ML SDV IVPUSH PRN ×2 (07:14→12:00)
[2023-02-17] MEDS ORDERED: Naloxone 0.4 MG/ML SDV IVPUSH PRN (07:14)
[2023-02-17] MEDS ORDERED: Ondansetron 4 MG/2 ML SDV IVPUSH PRN (07:14)
[2023-02-17] MEDS ORDERED: diphenhydrAMINE 25 MG Cap PO PRN (07:14)
[2023-02-17] MEDS ORDERED: Ropivacaine 28 ML, dexAMETHasone 8 MG, EPINEPHrine 0.4 MG, Sodium Chloride 0.9% 49.6 ML NERVRT SCH ×4 (07:15)
[2023-02-17] MEDS ORDERED: Ketamine 500 MG/5 ML MDV IV SCH (07:15)
[2023-02-17] MEDS ORDERED: Ketamine 17 MG in Sodium Chloride 0.9% 19.83 ML IV SCH (07:15)
[2023-02-17] MEDS ORDERED: Naloxone 0.4 MG/ML SDV IV PRN (08:00)
[2023-02-17] MEDS ORDERED: ePHEDrine 50 MG/ML SDV ONE (08:09)
[2023-02-17] MEDS ORDERED: Sodium Chloride 0.9% 10 ML ONE (08:09)
[2023-02-17] MEDS ORDERED: fentaNYL 100 MCG/2 ML SDV ONE (09:01)
[2023-02-17] MEDS ORDERED: Lactated Ringers 1,000 ML ONE (09:05)
[2023-02-17] MEDS: HYDROmorphone/Normal Saline 6 MG/30 ML PCA Vial IV PRN (09:39)
[2023-02-17] MEDS: Ondansetron 4 MG/2 ML SDV IVPUSH PRN (11:50)
[2023-02-17] MEDS: Dextrose 5%-Lactated Ringers 1,000 ML IV SCH ×2 (11:51→23:40)
[2023-02-17] MEDS: SCOPOLAMINE PATCH CHECK TOP SCH (11:54)
[2023-02-17] MEDS ORDERED: hydrOXYzine HCL 100 MG/2 ML SDV IM PRN (12:00)
[2023-02-17] MEDS ORDERED: Acetaminophen 500 MG Tab PO PRN (12:00)
[2023-02-17] MEDS ORDERED: Labetalol 20 MG/4 ML Syringe IVPUSH PRN (12:00)
[2023-02-17] MEDS ORDERED: Metoclopramide 10 MG/2 ML SDV IVPUSH PRN (12:00)
[2023-02-17] MEDS ORDERED: Pantoprazole 40 MG Vial IVPUSH SCH (14:00)
[2023-02-17] MEDS: Meropenem 500 MG in Sodium Chloride 0.9% 50 ML IV SCH ×2 (14:42→19:51)
[2023-02-17] MEDS: MVI, Adult with Vitamin K 10 ML, Thiamine 200 MG, Zinc/Copper/Manganese/Selenium 1 ML i... IV SCH ×4 (16:19)
[2023-02-17] MEDS: Acetaminophen 500 MG Tab PO SCH (16:21)
[2023-02-18] MEDS: Acetaminophen 500 MG Tab PO SCH ×5 (00:33→23:35)
[2023-02-18] MEDS: Meropenem 500 MG in Sodium Chloride 0.9% 50 ML IV SCH ×2 (01:23→08:59)
[2023-02-18] MEDS: Ondansetron 4 MG/2 ML SDV IVPUSH PRN ×2 (01:29→06:01)
[2023-02-18] MEDS: Cyclobenzaprine 10 MG Tab PO PRN ×2 (02:38→22:00)
[2023-02-18] MEDS: Dextrose 5%-Lactated Ringers 1,000 ML IV SCH (07:02)
[2023-02-18] MEDS ORDERED: Dextrose 5%-Lactated Ringers 1,000 ML IV SCH (07:15)
[2023-02-18] MEDS: HYDROmorphone/Normal Saline 6 MG/30 ML PCA Vial IV PRN (08:50)
[2023-02-18] MEDS: Levothyroxine 112 MCG Tab PO SCH (08:52)
[2023-02-18] MEDS: Levothyroxine 25 MCG Tab PO SCH (08:53)
[2023-02-18] MEDS: SCOPOLAMINE PATCH CHECK TOP SCH (08:55)
[2023-02-18] MEDS: Docusate Sodium 100 MG Cap PO SCH ×2 (08:55→20:04)
[2023-02-18] MEDS: Bisacodyl 5 MG Tab PO SCH ×2 (08:55→20:04)
[2023-02-18] MEDS: Metoclopramide 10 MG/2 ML SDV IV SCH ×3 (09:00→22:01)
[2023-02-18] MEDS: Pantoprazole 40 MG Tab.CR PO SCH (11:29)
[2023-02-18] MEDS: oxyCODONE 5 MG Tab PO PRN ×3 (14:32→23:37)
[2023-02-18] MEDS: MVI, Adult with Vitamin K 10 ML, Thiamine 200 MG, Zinc/Copper/Manganese/Selenium 1 ML i... IV SCH ×4 (15:24)
[2023-02-18] MEDS: hydrOXYzine HCl 25 MG Tab PO PRN ×2 (17:14→22:00)
[2023-02-19] MEDS: hydrOXYzine HCl 25 MG Tab PO PRN ×3 (02:36→16:11)
[2023-02-19] MEDS: oxyCODONE 5 MG Tab PO PRN ×4 (03:32→21:45)
[2023-02-19] MEDS: Metoclopramide 10 MG/2 ML SDV IV SCH (03:39)
[2023-02-19] MEDS: Cyclobenzaprine 10 MG Tab PO PRN (06:58)
[2023-02-19] MEDS: Acetaminophen 500 MG Tab PO SCH ×3 (07:01→23:32)
[2023-02-19] MEDS: Levothyroxine 25 MCG Tab PO SCH (07:02)
[2023-02-19] MEDS: Levothyroxine 112 MCG Tab PO SCH (07:02)
[2023-02-19] MEDS: Pantoprazole 40 MG Tab.CR PO SCH (07:02)
[2023-02-19] MEDS ORDERED: LORazepam 1 MG Tab PO ONE (07:06)
[2023-02-19] MEDS ORDERED: Cyanocobalamin (Vitamin B12) 1,000 MCG/ML SDV IM ONE (09:00)
[2023-02-19] MEDS: SCOPOLAMINE PATCH CHECK TOP SCH (09:42)
[2023-02-19] MEDS: Docusate Sodium 100 MG Cap PO SCH ×2 (09:42→20:06)
[2023-02-19] MEDS: Bisacodyl 5 MG Tab PO SCH ×2 (09:42→20:06)
[2023-02-19] MEDS: Ondansetron 4 MG Tab.DIS PO PRN (17:39)
[2023-02-20] MEDS: Cyclobenzaprine 10 MG Tab PO PRN (00:16)
[2023-02-20] MEDS: oxyCODONE 5 MG Tab PO PRN ×2 (02:41→10:38)
[2023-02-20] MEDS: Ondansetron 4 MG Tab.DIS PO PRN ×3 (04:54→14:03)
[2023-02-20] MEDS ORDERED: Magnesium Hydroxide 400 MG/5 ML Susp 30 ML Cup PO PRN (05:07)
[2023-02-20] MEDS ORDERED: Bisacodyl 10 MG Supp RECTAL ONE (05:08)
[2023-02-20] MEDS: Levothyroxine 25 MCG Tab PO SCH (08:00)
[2023-02-20] MEDS: Levothyroxine 112 MCG Tab PO SCH (08:00)
[2023-02-20] MEDS: Pantoprazole 40 MG Tab.CR PO SCH (08:00)
[2023-02-20] MEDS: Acetaminophen 500 MG Tab PO SCH ×2 (08:01→15:23)
[2023-02-20] MEDS ORDERED: Polyethylene Glycol 3350 Powder 119 GM Bottle PO ONE (09:00)
[2023-02-20] MEDS: Docusate Sodium 100 MG Cap PO SCH (09:37)
[2023-02-20] MEDS: Bisacodyl 5 MG Tab PO SCH (09:37)
[2023-02-20] MEDS ORDERED: Sodium Chloride 0.9% 10 ML Syringe FLUSH PRN (13:39)
[2023-02-20] MEDS ORDERED: Ondansetron 4 MG/2 ML SDV IVPUSH PRN (14:09)
[2023-02-20] MEDS: hydrOXYzine HCl 25 MG Tab PO PRN ×2 (14:31→23:44)
[2023-02-20] MEDS: Dextrose 5%-Lactated Ringers 1,000 ML IV SCH ×2 (15:22→23:49)
[2023-02-20] MEDS: Metoclopramide 10 MG/2 ML SDV IVPUSH SCH ×2 (15:22→19:24)
[2023-02-20] MEDS ORDERED: HYDROmorphone/Normal Saline 6 MG/30 ML PCA Vial IV PRN (15:40)
[2023-02-20] MEDS ORDERED: Naloxone 0.4 MG/ML SDV IV PRN (16:00)
[2023-02-20] MEDS ORDERED: Azithromycin 125 MG in Sodium Chloride 0.9% 100 ML IV SCH (17:00)
[2023-02-20] MEDS: Bisacodyl 10 MG Supp RECTAL SCH (20:43)
[2023-02-20] MEDS: Pantoprazole 40 MG Vial IV SCH (20:43)
[2023-02-21] MEDS: Acetaminophen 500 MG Tab PO SCH ×3 (00:09→16:47)
[2023-02-21] MEDS: Metoclopramide 10 MG/2 ML SDV IVPUSH SCH ×3 (02:43→14:32)
[2023-02-21 04:54] LABS: HEMATOCRIT 33.5 % (34.3-46.0); HEMOGLOBIN 11.1 g/dL (11.2-15.5); MEAN CORPUSCULAR HEMOGLOBIN 30.6 pg (31.6-35.5); MEAN CORPUSCULAR HGB CONC 33.1 g/dL (31.6-35.5); MEAN CORPUSCULAR VOLUME 92.3 fL (81.4-99.0); RED BLOOD CELL COUNT 3.63 M/uL (3.77-5.24); WHITE BLOOD CELL COUNT,WBC 6.2 K/uL (3.2-11.0)
[2023-02-21 04:57] LABS: A/G RATIO 0.8 (1.2-2.2); ALANINE AMINOTRANSFERASE,ALT 19 U/L (12-78); ALBUMIN 2.4 g/dL (3.4-5.0); ALKALINE PHOSPHATASE 76 U/L (46-116); ASPARTATE AMNIOTRANSFERASE,AST 17 U/L (15-37); BILIRUBIN TOTAL 0.5 mg/dL (0.2-1.0); BLOOD UREA NITROGEN,BUN 8 mg/dL (7-18); CALCIUM 8.3 mg/dL (8.5-10.1); CARBON DIOXIDE,CO2 35 mmol/L (21-32); CHLORIDE,CL 101 mmol/L (100-108); CREATININE 0.6 mg/dL (0.6-1.0); EST CRCL DRUG DOSING (CG) 96.71 mL/min; ESTIMATED GFR 107 mL/min (>60); GLUCOSE RANDOM 117 mg/dL (74-106); MAGNESIUM 1.6 mg/dL (1.8-2.4); POTASSIUM,K 3.8 mmol/L (3.6-5.2); PROTEIN TOTAL,TP 5.4 g/dL (6.4-8.2); SODIUM,NA 138 mmol/L (140-148)
[2023-02-21 05:12] LABS: ANION GAP 5.8 mmol/L (5.0-14.0)
[2023-02-21] MEDS: Levothyroxine 25 MCG Tab PO SCH (07:36)
[2023-02-21] MEDS: Levothyroxine 112 MCG Tab PO SCH (07:36)
[2023-02-21] MEDS: Dextrose 5%-Lactated Ringers 1,000 ML IV SCH ×2 (07:54→17:06)
[2023-02-21] MEDS: Bisacodyl 10 MG Supp RECTAL SCH ×2 (09:26→21:07)
[2023-02-21] MEDS: Bisacodyl 5 MG Tab PO SCH ×2 (09:26→21:07)
[2023-02-21] MEDS: Docusate Sodium 100 MG Cap PO SCH ×2 (09:26→21:07)
[2023-02-21] MEDS: Pantoprazole 40 MG Vial IV SCH ×2 (09:26→21:50)
[2023-02-21] MEDS: Magnesium Sulfate/Water 2 GM in Premix Bag 1 BAG IV SCH ×3 (09:41→21:51)
[2023-02-22] MEDS: Acetaminophen 500 MG Tab PO SCH ×5 (00:45→23:24)
[2023-02-22] MEDS: Magnesium Sulfate/Water 2 GM in Premix Bag 1 BAG IV SCH ×2 (04:39→10:37)
[2023-02-22] MEDS: Levothyroxine 112 MCG Tab PO SCH (08:24)
[2023-02-22] MEDS: Levothyroxine 25 MCG Tab PO SCH (08:25)
[2023-02-22] MEDS: Pantoprazole 40 MG Vial IV SCH (09:10)
[2023-02-22] MEDS: Pantoprazole 40 MG Tab.CR PO SCH (09:40)
[2023-02-22] MEDS: Docusate Sodium 100 MG Cap PO SCH ×2 (09:41→20:07)
[2023-02-23 06:09] VITALS: BP 117/70; PULSE 58
[2023-02-23] MEDS: Levothyroxine 25 MCG Tab PO SCH (07:40)
[2023-02-23] MEDS: Levothyroxine 112 MCG Tab PO SCH (07:40)
[2023-02-23] MEDS: Acetaminophen 500 MG Tab PO SCH (07:43)
[2023-02-23] MEDS ORDERED: Amylase/Lipase/Protease 12,000 Unit Cap.CR PO SCH (08:00)
[2023-02-23] MEDS ORDERED: Dicyclomine 10 MG Cap PO PRN (08:19)
[2023-02-23] MEDS: Pantoprazole 40 MG Tab.CR PO SCH (09:08)
[2023-02-23] MEDS: Docusate Sodium 100 MG Cap PO SCH (09:08)
== END 2023-02-23 09:30 | disposition home or self-care (01) | DRG 327 ==
LOC: JP.SDS 05:28 → JP.MS 09:20
PROVIDERS: ADMIT Surgery; ATTEND Surgery
PROC: 0DBW0ZZ Excision of Peritoneum, Open Approach (ICD-10-PCS; principal; 2023-02-17)
PROC: 0DB60ZZ Excision of Stomach, Open Approach (ICD-10-PCS; principal; 2023-02-17)
PROC: 3E0M05Z Introduction of Adhesion Barrier into Peritoneal Cavity, Open Approach (ICD-10-PCS; principal; 2023-02-17)
DX: K91.89 Other postprocedural complications and disorders of digestive system (principal); K56.609 Unspecified intestinal obstruction, unspecified as to partial versus complete obstruction; E03.9 Hypothyroidism, unspecified; G89.29 Other chronic pain; F32.A Depression, unspecified; R12 Heartburn; M79.7 Fibromyalgia; J45.30 Mild persistent asthma, uncomplicated; F17.210 Nicotine dependence, cigarettes, uncomplicated; Z98.890 Other specified postprocedural states; Z79.899 Other long term (current) drug therapy; Z98.1 Arthrodesis status; Z90.710 Acquired absence of both cervix and uterus; Z90.49 Acquired absence of other specified parts of digestive tract; Z90.3 Acquired absence of stomach [part of]; Z90.89 Acquired absence of other organs; Z88.0 Allergy status to penicillin; Z88.8 Allergy status to other drugs, medicaments and biological substances; Z91.040 Latex allergy status
CPT/HCPCS: 36415; 74019; 74019-26; 74240; 74240-26; 80053; 83735; 84100; 84443; 85027; 88307; 88309; A9270-GY; C9113; J0131; J0171; J0330; J0456; J1100; J1170; J2020; J2185; J2405; J2704; J2710; J2765; J2795; J3010; J3410; J3411; J3420; J3475; J3490; J7120; J7121; Q0162